=== PATIENT | male | born 1975 | race Caucasian/White ===

== ENCOUNTER 2016-08-04 14:39 | Emergency (ER) | payer OTHER ==
--- NOTE | 2016-08-04 15:52 | CR ---
{null, Clinical history: 40-year-old male right-sided chest pain. Interpretation: Negative exam. Normal cardiac silhouette without alveolar edema or dependent effusion. Mike thorax unremarkable. No lung mass, hilar lymphadenopathy or focal lobar pneumonia. No atelectasis/collapse. No pneumothorax. }
[2016-08-04 16:15] LABS: CHLORIDE,CL 98 mmol/L (101-111); SODIUM,NA 136 mmol/L (135-145)
[2016-08-04] MEDS ORDERED: Ketorolac 30 MG/ML SDV IVPUSH ONE (16:34)
--- NOTE | 2016-08-04 16:44 | EDM.PDOC ---
{null, ED HPI GENERAL MEDICAL PROBLEM - General Chief Complaint: Respiratory Problem Stated Complaint: HARD TIME BREATHING [phone] Time Seen by Provider: 08/04/16 16:34 Source of Information: Reports: Patient History Limitations: Reports: No Limitations - History of Present Illness INITIAL COMMENTS - FREE TEXT/NARRATIVE: This 40 yo male patient reports to the ED with right sided chest pain and shortness of breath. The patient reports a past history of a pulmonary effusion on the left side. Today, the patient was coughing when he felt a "pop" and increased pain in the right chest. The patient reports shortness of breath due to the increased pain. The patient reports no other problems at this time. Onset: Today, Sudden Onset Date: 08/04/16 Duration: Minutes:, Constant Location: Reports: Chest (right chest) Quality: Reports: Ache, Sharp Severity: Severe Improves with: Reports: Rest Worsens with: Reports: Movement Context: Reports: Other (coughing) Associated Symptoms: Reports: Cough, Other (right chest wall pain) Right Back Pain Score (Numeric/FACES): 8 - Related Data Allergies Allergy/AdvReac Type Severity Reaction Status Date / Time No Known Allergies Allergy Verified 11/20/15 13:03 Home Meds: Home Meds Glimepiride [Amaryl] 2 mg PO DAILY 08/04/16 [History] Rosuvastatin Calcium 20 mg PO DAILY 08/04/16 [History] metFORMIN [Glucophage] 1,000 mg PO BID 08/04/16 [History] Past Medical History HEENT History: Reports: Impaired Vision Cardiovascular History: Reports: High Cholesterol Respiratory History: Reports: Other (See Below) Other Respiratory History: pleural effusion on left 2015 Endocrine/Metabolic History: Reports: Diabetes, Type II Social & Family History - Tobacco Use Smoking Status *Q: Former Smoker Used Tobacco, but Quit: Yes Month Tobacco Last Used: 2006 - Recreational Drug Use Recreational Drug Use: Yes Recreational Drug Type: Reports: Marijuana/Hashish ED ROS GENERAL - Review of Systems Review Of Systems: ROS reveals no pertinent complaints other than HPI. ED EXAM, GENERAL - Physical Exam Exam: See Below Exam Limited By: No Limitations General Appearance: Alert, WD/WN, Moderate Distress Eye Exam: Bilateral Eye: EOMI, Normal Inspection, PERRL Ears: Normal External Exam, Normal Canal, Hearing Grossly Normal, Normal TMs Nose: Normal Inspection, Normal Mucosa, No Blood Throat/Mouth: Normal Inspection, Normal Lips, Normal Teeth, Normal Gums, Normal Oropharynx, Normal Voice, No Airway Compromise Head: Atraumatic, Normocephalic Neck: Normal Inspection, Supple, Non-Tender, Full Range of Motion Respiratory/Chest: No Respiratory Distress, Lungs Clear, Normal Breath Sounds, No Accessory Muscle Use, Other (right sided chest wall tenderness) Cardiovascular: Normal Peripheral Pulses, Regular Rate, Rhythm, No Edema, No Gallop, No JVD, No Murmur, No Rub GI/Abdominal: Normal Bowel Sounds, Soft, Non-Tender, No Organomegaly, No Distention, No Abnormal Bruit, No Mass (Male) Exam: Deferred Rectal (Males) Exam: Deferred Back Exam: Normal Inspection, Full Range of Motion, NT Extremities: Normal Inspection, Normal Range of Motion, Non-Tender, Normal Capillary Refill, No Pedal Edema Neurological: Alert, Oriented, CN II-XII Intact, Normal Cognition, Normal Gait, Normal Reflexes, No Motor/Sensory Deficits Psychiatric: Normal Affect, Normal Mood Skin Exam: Warm, Dry, Intact, Normal Color, No Rash Lymphatic: No Adenopathy Course - Vital Signs Last Recorded V/S: Last Vital Signs Temp 35.8 C 08/04/16 14:58 Pulse 88 08/04/16 14:58 Resp 16 08/04/16 14:58 BP 159/102 H 08/04/16 14:58 Pulse Ox 98 08/04/16 15:40 - Orders/Labs/Meds Orders: Active Orders 24 hr Category Date Time Status Orphenadrine [Norflex] Med 08/04/16 16:45 Active 60 mg IM Q12H Medication Orders Orphenadrine Citrate (Norflex) 60 mg IM Q12H [facility] Last Admin: 08/04/16 16:49 Dose: 60 mg Labs: Laboratory Tests 08/04/16 08/04/16 Range/Units 15:30 15:30 WBC 8.4 (5.0-10.0) 10^3/uL RBC 5.08 (4.6-6.2) 10^6/uL Hgb 15.8 (14.0-18.0) g/dL Hct 44.6 (40.0-54.0) % MCV 87.8 (80-100) fL MCH 31.1 (27.0-34.0) pg MCHC 35.4 H (33.0-35.0) g/dL Plt Count 257 (150-450) 10^3/uL Neut % (Auto) 67.1 (42.2-75.2) % Lymph % (Auto) 18.4 L (20.5-50.1) % [place] % (Auto) 9.9 H (2-8) % Eos % (Auto) 3.9 H (1.0-3.0) % Baso % (Auto) 0.7 (0.0-1.0) % Sodium 136 (135-145) mmol/L Potassium 3.8 (3.6-5.0) mmol/L Chloride 98 L (101-111) mmol/L Carbon Dioxide 30.0 (21.0-31.0) mmol/L Anion Gap 11.8 BUN 12 (7-18) mg/dL Creatinine 0.7 (0.6-1.3) mg/dL Est Cr Clr Drug Dosing 155.51 mL/min Estimated GFR (MDRD) > 60 BUN/Creatinine Ratio 17.14 Glucose 174 H (74-105) mg/dL Calcium 8.9 (8.4-10.2) mg/dl Total Bilirubin 0.5 (0.2-1.0) mg/dL AST 33 (10-42) IU/L ALT 49 (10-60) IU/L Alkaline Phosphatase 57 (42-121) IU/L Total Protein 7.9 (6.7-8.2) g/dl Albumin 4.3 (3.2-5.5) g/dl Globulin 3.6 Albumin/Globulin Ratio 1.19 Meds: Medications Generic Name Dose Route Start Last Admin Trade Name Freq PRN Reason Stop Dose Admin Orphenadrine Citrate 60 mg 08/04/16 16:45 08/04/16 16:49 Norflex IM 60 mg Q12H NANCY Administration Discontinued Medications Generic Name Dose Route Start Last Admin Trade Name Freq PRN Reason Stop Dose Admin Hydrocodone Bitart/Acetaminophen 1 tab 08/04/16 17:40 08/04/16 17:59 [place] 325-10 Mg PO 08/04/16 17:41 1 tab ONETIME ONE Administration Ketorolac Tromethamine 30 mg 08/04/16 16:34 08/04/16 16:42 Toradol IVPUSH 08/04/16 16:35 30 mg ONETIME ONE Administration - Re-Assessments/Exams Free Text/Narrative Re-Assessment/Exam: 08/04/16 17:40 The patient reports no change in his symptoms with the Toradol or Norflex. An order was placed for a [place] (325). Departure - Departure Time of Disposition: 18:33 Disposition: Home, Self-Care 01 Condition: fair Clinical Impression: Chest wall pain - Discharge Information Instructions: Chest Wall Pain, [id number] Forms: ED Department Discharge Care Plan Goals: The patient was advised of the examination, lab and x-ray results during the visit. The patient was given IV Toradol, IM Norflex and PO [place] while in the emergency department. The patient was discharged with a script for [place] (325 ) #20 to take 1 by mouth every 6 hours and Flexeril (10 mg) #20 to take 1 by mouth at bedtime as needed. If the patient has any additional symptoms or concerns, the patient should follow-up with his primary care facility or return to the emergency department. - My Orders Last 24 Hours: My Active Orders 08/04/16 16:45 Orphenadrine [Norflex] 60 mg IM Q12H - Assessment/Plan Last 24 Hours: My Active Orders 08/04/16 16:45 Orphenadrine [Norflex] 60 mg IM Q12H }
[2016-08-04] MEDS ORDERED: Acetaminophen/HYDROcodone 325-10 MG Tab PO ONE (17:40)
[2016-08-04 18:51] VITALS: BP 138/84
== END 2016-08-04 18:42 | disposition home or self-care (01) ==
LOC: DL.ED 14:39
DX: R07.89 Other chest pain (principal); E11.9 Type 2 diabetes mellitus without complications; E78.00 Pure hypercholesterolemia, unspecified; Z87.891 Personal history of nicotine dependence; Z79.899 Other long term (current) drug therapy
CPT/HCPCS: 36415; 71020; 80053; 85025; 96372; 96374; 99285; A9270; J1885; J2360